=== PATIENT | male | born 1980 | race Two or more races ===

== ENCOUNTER 2016-10-15 23:20 | Emergency (ER) | payer MEDICAID ==
[2016-10-16 03:59] VITALS: BP 139/79
== END 2016-10-16 04:36 | disposition home or self-care (01) ==
LOC: ER 23:20 → EDBD 23:20 → ER 10-16 04:36
DX: S02.32XA Fracture of orbital floor, left side, initial encounter for closed fracture (principal); S01.81XA Laceration without foreign body of other part of head, initial encounter; Y08.89XA Assault by other specified means, initial encounter; Y93.89 Activity, other specified; Y99.8 Other external cause status; Y92.89 Other specified places as the place of occurrence of the external cause
CPT/HCPCS: 70450; 70486; 72125

== ENCOUNTER 2018-01-04 19:53 | Emergency (ER) | payer MEDICAID ==
[~2018-01-04] VITALS: Ht 167.6 cm; Wt 68.0 kg
[2018-01-04 19:59] VITALS: BP 143/102
[2018-01-05] MEDS ORDERED: HYDROcodone-ACET 10/325MG TAB PO ONE (00:30)
== END 2018-01-05 01:20 | disposition home or self-care (01) ==
LOC: ER 19:53
DX: S93.402A Sprain of unspecified ligament of left ankle, initial encounter (principal); S80.01XA Contusion of right knee, initial encounter; X58.XXXA Exposure to other specified factors, initial encounter; Y93.89 Activity, other specified; Y92.89 Other specified places as the place of occurrence of the external cause; Y99.8 Other external cause status
CPT/HCPCS: 73562; 73610; 73630